=== PATIENT | female | born 1985 | race Caucasian/White ===

== ENCOUNTER 2018-05-17 08:48 | Outpatient (CLI) | payer BC ==
[~2018-05-17 08:48] MED LIST: FERRIC CARBOXYMALTOSE 750 MG in NORMAL SALINE 250 ML IV PRN; NORMAL SALINE 250 ML IV PRN
[2018-05-17 09:22] VITALS: BP 107/73
== END 2018-05-17 10:40 | disposition home or self-care (01) ==
LOC: II 08:48 → 5TH 09:21 → II 10:40
PROVIDERS: ATTEND Internal Medicine Hematology & Oncology
PROC: 3E043GC Introduction of Other Therapeutic Substance into Central Vein, Percutaneous Approach (ICD-10-PCS; principal; 2018-05-17)
DX: D50.9 Iron deficiency anemia, unspecified (principal); K90.9 Intestinal malabsorption, unspecified
CPT/HCPCS: 96367; J7050; J1439; 96365

== ENCOUNTER 2018-05-24 08:34 | Outpatient (CLI) | payer BC ==
[2018-05-24 08:54] VITALS: BP 119/71
== END 2018-05-24 09:45 | disposition home or self-care (01) ==
LOC: II 08:34 → 5TH 08:36 → II 09:45
PROVIDERS: ATTEND Internal Medicine Hematology & Oncology
PROC: 3E043GC Introduction of Other Therapeutic Substance into Central Vein, Percutaneous Approach (ICD-10-PCS; principal; 2018-05-24)
DX: D50.9 Iron deficiency anemia, unspecified (principal); K90.9 Intestinal malabsorption, unspecified
CPT/HCPCS: 96365; J7050; J1439

== ENCOUNTER 2018-07-24 12:24 | Outpatient (CLI) | payer BC ==
[2018-07-24 14:15] VITALS: BP 117/83
== END 2018-07-24 13:30 | disposition home or self-care (01) ==
LOC: II 12:24 → 5TH 12:28 → II 13:30
PROVIDERS: ATTEND Internal Medicine
PROC: 3E033GC Introduction of Other Therapeutic Substance into Peripheral Vein, Percutaneous Approach (ICD-10-PCS; principal; 2018-07-24)
DX: D50.9 Iron deficiency anemia, unspecified (principal); K90.9 Intestinal malabsorption, unspecified
CPT/HCPCS: 96367; J7050; J1439; 96365

== ENCOUNTER 2018-07-31 12:49 | Outpatient (CLI) | payer BC ==
[2018-07-31 14:57] VITALS: BP 157/85
== END 2018-07-31 15:09 | disposition home or self-care (01) ==
LOC: II 12:49 → 5TH 13:20 → II 15:09
PROVIDERS: ATTEND Internal Medicine
PROC: 3E033GC Introduction of Other Therapeutic Substance into Peripheral Vein, Percutaneous Approach (ICD-10-PCS; principal; 2018-07-31)
DX: D50.9 Iron deficiency anemia, unspecified (principal); K90.9 Intestinal malabsorption, unspecified
CPT/HCPCS: 96365; J7050; J1439

== ENCOUNTER 2018-08-04 07:37 | Emergency (ER) | payer BC ==
[2018-08-04 10:03] LABS: APPEARANCE,URINE CLEAR; BILIRUBIN,URINE NEGATIVE (NEGATIVE); COLOR,URINE STRAW; GLUCOSE, URINE NEGATIVE (NEGATIVE); KETONES,URINE NEGATIVE (NEGATIVE); LEUKOCYTE ESTERASE,URINE NEGATIVE (NEGATIVE); NITRITE,URINE NEGATIVE (NEGATIVE); PROTEIN,URINE NEGATIVE (NEGATIVE); URINE SPECIFIC GRAVITY 1.004; UROBILINOGEN,URINE NEGATIVE mg/dL (<2.0)
[2018-08-04 10:04] LABS: INTERNATIONAL RATION (INR) 0.85
[2018-08-04 10:08] LABS: ABSOLUTE BASOPHILS # (AUTO) 0.1 10^3/uL (0.0-0.2); ABSOLUTE EOSINOPHILS # (AUTO) 0.1 10^3/uL (0.0-0.6); ABSOLUTE LYMPHOCYTES (AUTO) 2.1 10^3/uL (0.5-4.7); ABSOLUTE MONOCYTES (AUTO) 0.6 10^3/uL (0.1-1.4); ABSOLUTE NEUT (AUTO) 4.6 10^3/uL (1.7-8.2); BASOPHILS % (AUTO) 0.7 % (0-2); EOSINOPHILS % (AUTO) 1.4 % (0-6); HEMATOCRIT 40.3 % (36.0-47.0); HEMOGLOBIN 13.4 g/dL (12.0-15.5); LYMPHOCYTES % (AUTO) 28.6 % (13-45); MEAN CORPUSCULAR HEMOGLOBIN 27.7 pg (27.0-33.4); MEAN CORPUSCULAR HGB CONC 33.3 g/dL (32.0-36.0); MEAN CORPUSCULAR VOLUME 83 fl (80-97); MONOCYTES % (AUTO) 7.5 % (3-13); PLATELET COUNT 327 10^3/uL (150-450); RED BLOOD COUNT 4.84 10^6/uL (3.72-5.28); SEGMENTED NEUTROPHILS % (AUTO) 61.8 % (42-78); TOTAL CELLS COUNTED % (AUTO) 100 %; WHITE BLOOD COUNT 7.5 10^3/uL (4.0-10.5)
[2018-08-04 10:21] LABS: ALANINE AMINOTRANSFERASE 22 U/L (9-52); ALBUMIN 3.6 g/dL (3.5-5.0); ALKALINE PHOSPHATASE 50 U/L (38-126); ANION GAP 5 (5-19); ASPARTATE AMINO TRANSFERASE 28 U/L (14-36); BILIRUBIN,DIRECT 0.2 mg/dL (0.0-0.4); BILIRUBIN,TOTAL 0.4 mg/dL (0.2-1.3); BLOOD UREA NITROGEN 10 mg/dL (7-20); CALCIUM 8.7 mg/dL (8.4-10.2); CARBON DIOXIDE 24 mmol/L (22-30); CHLORIDE 111 mmol/L (98-107); CREATINE KINASE 159 U/L (30-135); GLUCOSE 71 mg/dL (75-110); POTASSIUM 4.1 mmol/L (3.6-5.0); SODIUM 139.6 mmol/L (137-145); TOTAL PROTEIN 6.2 g/dL (6.3-8.2)
[2018-08-04 10:30] LABS: TOXIC GRANULATION 1+
[2018-08-04 10:31] LABS: ANISOCYTOSIS 3+; OVALOCYTES 1+; PLATELET COMMENT ADEQUATE; POIKILOCYTOSIS 1+; TARGET CELLS SLIGHT
[2018-08-04] MEDS ORDERED: FUROSEMIDE INJ/PF 20 MG/2 ML SDV IV ONE (10:43)
[2018-08-04 14:15] VITALS: BP 123/80
--- NOTE | 2018-08-04 20:47 | ER Document Report ---
Entered by MEGAN SHANKAR SCRIBE 08/04/18 0933 Acting as scribe for:CASA DANIELS MD ED Extremity Problem, Lower - General Chief Complaint: Leg Swelling Stated Complaint: LEG SWELLING Time Seen by Provider: 08/04/18 09:17 Primary Care Provider: CHARLEY MADRIGAL MD [Primary Care Provider] - Follow up as needed Mode of Arrival: Ambulatory Information source: Patient Notes: Patient is a 32 year old female with iron deficiency anemia presents to the emergency department complaining of bilateral lower extremity swelling onset 2 days ago. Patient states her legs are extremely swollen and painful and reports gaining 25 lbs in the last 2 weeks. She states she took Diurex yesterday in attempt to relieve the swelling but reports it did not work, further stating she only urinated a total of 2x yesterday. Patient states she is on control to lighten her periods which are normally extremely heavy. She states she stopped taking her control a few days ago. TRAVEL OUTSIDE OF THE [place] IN LAST 30 DAYS: No - Related Data Allergies/Adverse Reactions: No Known Allergies Allergy (Verified 08/04/18 07:39) Past Medical History - General Information source: Patient - Social History Smoking Status: Current Every Day Smoker Cigarette use (# per day): Yes - 1/2 PPD Frequency of alcohol use: Occasional Drug Abuse: None Family History: Reviewed & Not Pertinent Patient has suicidal ideation: No Patient has homicidal ideation: No - Past Medical History Cardiac Medical History: Reports: Hx Hypertension - HX OF, NOT CURRENTLY Past Surgical History: Reports: Hx Abdominal Surgery - gastric bypass, Hx Section - X3, Hx Oral Surgery - wisdome teeth, Other - Tubal clamps - Immunizations Hx Diphtheria, Pertussis, Tetanus Vaccination: Yes Review of Systems - Review of Systems Constitutional: No symptoms reported EENT: No symptoms reported Cardiovascular: No symptoms reported Respiratory: No symptoms reported Gastrointestinal: No symptoms reported Genitourinary: No symptoms reported Female Genitourinary: No symptoms reported Musculoskeletal: See HPI, Leg swelling Skin: No symptoms reported Hematologic/Lymphatic: No symptoms reported Neurological/Psychological: No symptoms reported -: Yes All other systems reviewed and negative Physical Exam - Vital signs Vitals: Temp Pulse Resp BP Pulse Ox 98.1 F 85 18 126/80 H 100 08/04/18 07:40 08/04/18 07:40 08/04/18 07:40 08/04/18 07:40 08/04/18 07:40 - Notes Notes: GENERAL: Alert, interacts well. No acute distress. HEAD: Normocephalic, atraumatic. EYES: Pupils equal, round, and reactive to light. Extraocular movements intact. ENT: Oral mucosa moist, tongue midline. NECK: Full range of motion. Supple. Trachea midline. LUNGS: Clear to auscultation bilaterally, no wheezes, rales, or rhonchi. No respiratory distress. HEART: Regular rate and rhythm. No murmurs, gallops, or rubs. ABDOMEN: Soft, non-tender. Non-distended. Bowel sounds present in all 4 quadrants. No guarding, rigidity, or rebound. EXTREMITIES: Moves all 4 extremities spontaneously. Gross pitting edema to the level of knees in the BLE. No cyanosis. NEUROLOGICAL: Alert and oriented x3. Normal speech. PSYCH: Normal affect, normal mood. SKIN: Warm, dry, normal turgor. No rashes or lesions noted. Course - Re-evaluation Re-evalutation: 08/04/18 13:59 The patient has diuresed a little over 2 L at this point. She reports the feet and ankles are still painful but a little bit better. There is still pitting edema, it feels a little softer. The calves are very soft and nontender. The most tender area is the left anterior tibialis muscle region. The left ankle remains a little more swollen than the right and a little more tender. - Vital Signs Vital signs: Temp Pulse Resp BP Pulse Ox 98.0 F 75 16 103/60 100 08/04/18 12:00 08/04/18 12:00 08/04/18 12:00 08/04/18 12:00 08/04/18 12:00 - Laboratory Result Diagrams: 08/04/18 09:40 08/04/18 09:40 Laboratory results interpreted by me: 08/04/18 08/04/18 08/04/18 09:40 09:40 09:40 RDW 25.0 H Chloride 111 H Glucose 71 L Magnesium 2.4 H Creatine Kinase 159 H Total Protein 6.2 L Urine Blood MODERATE H Discharge - Discharge Clinical Impression: Peripheral edema Condition: Stable Disposition: HOME, SELF-CARE Additional Instructions: Edema, Peripheral: You have swelling in your legs. This is called peripheral edema. It can be caused by "leaky capillaries," inflammation, disease of the leg veins, or excess salt and water in your body. Edema may be a sign of heart, kidney, or liver disease. A medical evaluation can determine if there is a serious underlying cause for your edema. Avoid prolonged standing. If you must sit for a long time, occasionally get up and walk around or elevate your legs. Support stockings can be helpful in limiting swelling. Often diuretic or water pills are used to remove excess salt and water from your body. Call the doctor or return if you develop increased swelling, pain, or redness, shortness of breath, chest pain, or any other significant change. Start the diuretic medication tomorrow. Elevate your feet as much as possible. Wear compression hose to help reduce and prevent swelling. Follow-up with your doctor in the next 1-2 days for recheck. RETURN TO THE EMERGENCY ROOM IF ANY NEW OR WORSENING SYMPTOMS. Prescriptions: Hydrochlorothiazide [Hydrodiuril 25 mg Tablet] 25 mg PO DAILY #10 Forms: Return to Work Referrals: CHARLEY MADRIGAL MD [Primary Care Provider] - 07/08/19 Scribe Attestation: 08/04/18 10:26 I personally performed the services described in the documentation, reviewed and edited the documentation which was dictated to the scribe in my presence, and it accurately records my words and actions. I personally performed the services described in the documentation, reviewed and edited the documentation which was dictated to the scribe in my presence, and it accurately records my words and actions.
== END 2018-08-04 14:32 | disposition home or self-care (01) ==
LOC: ER 07:37
DX: R60.0 Localized edema (principal); F17.210 Nicotine dependence, cigarettes, uncomplicated; I10 Essential (primary) hypertension; Z98.84 Bariatric surgery status
CPT/HCPCS: 99284; 96374; 36415; 82550; 83735; 85025; 85610; 80053; 81001; 85379; J1940

== ENCOUNTER 2019-02-02 09:35 | Emergency (ER) | payer BC ==
[2019-02-02 09:42] VITALS: BP 112/66
--- NOTE | 2019-02-02 10:25 | ER Document Report ---
HPI - HPI Patient complains to provider of: Skin rash Time Seen by Provider: 02/02/19 10:22 Onset/Duration: Worse Quality of pain: Burning Pain Level: 1 Context: Patient presents complaining of pruritic skin rash to the palmar surface of her hands for the past 4 months. Patient states that she has been applying topical steroid cream and the rash is almost completely resolved and then it started to worsen over the past week. Patient states that she wears latex gloves at work and frequently will pull the gloves off and noticed that her hands are weeping. Patient denies any fever. Patient states that she was prescribed another cream for her hands but her insurance would not cover it. Patient denies any fever. Associated Symptoms: Other - Skin rash. denies: Fever Exacerbated by: Movement Relieved by: Denies Similar symptoms previously: Yes Recently seen / treated by doctor: No - ROS ROS below otherwise negative: Yes Systems Reviewed and Negative: Yes All other systems reviewed and negative - CONSTITUTIONAL Constitutional: DENIES: Fever, Chills - REPRODUCTIVE Reproductive: DENIES: : - DERM Skin Problems: Rash Past Medical History - General Information source: Patient - Social History Smoking Status: Former Smoker Frequency of alcohol use: None Drug Abuse: None Occupation: [employer] Lives with: Spouse/Significant other Family History: Reviewed & Not Pertinent Patient has suicidal ideation: No Patient has homicidal ideation: No - Past Medical History Cardiac Medical History: Reports: Hx Hypertension - HX OF, NOT CURRENTLY Renal/ Medical History: Denies: Hx Peritoneal Dialysis Past Surgical History: Reports: Hx Abdominal Surgery - gastric bypass, Hx Section - X3, Hx Oral Surgery - wisdome teeth, Other - Tubal clamps. Denies: Hx Hysterectomy - Immunizations Hx Diphtheria, Pertussis, Tetanus Vaccination: Yes Vertical Provider Document - CONSTITUTIONAL Agree With Documented VS: Yes Exam Limitations: No Limitations General Appearance: WD/WN, No Apparent Distress - INFECTION CONTROL TRAVEL OUTSIDE OF THE [place] IN LAST 30 DAYS: No - HEENT HEENT: Atraumatic, Normocephalic - NECK Neck: Normal Inspection, Supple - RESPIRATORY Respiratory: No Respiratory Distress - CARDIOVASCULAR Pulses: Normal: Radial - MUSCULOSKELETAL/EXTREMETIES Musculoskeletal/Extremeties: MAEW, FROM - NEURO Level of Consciousness: Awake, Alert, Appropriate Motor/Sensory: No Motor Deficit - DERM Integumentary: Warm, Dry, Rash - Maculopapular rash to palmar surface of hands with areas of honey colored crusting Course - Re-evaluation Re-evalutation: 02/02/19 10:23 Patient with rash that looks consistent with reported history of dyshidrotic eczema. There is some concern about possible impetigo therefore antibiotic will be added at this time. Patient does have steroid cream is encouraged to follow- up with dermatology for further evaluation. Patient also advised to discontinue use of latex gloves at work switching instead to nitrile. - Vital Signs Vital signs: Temp Pulse Resp BP Pulse Ox 98.2 F 100 16 112/66 100 02/02/19 09:41 02/02/19 09:41 02/02/19 09:41 02/02/19 09:41 02/02/19 09:41 Discharge - Discharge Clinical Impression: Impetigo, Dyshidrotic eczema Condition: Stable Disposition: HOME, SELF-CARE Instructions: Cephalexin ([facility]), Impetigo ([facility]) Additional Instructions: Return immediately for any new or worsening symptoms Followup with your primary care provider, call tomorrow to make a followup appointment Continue to use the steroid cream as previously prescribed Follow-up with dermatology for further evaluation, call today for an appointment Prescriptions: Cephalexin Monohydrate [Keflex 500 mg Capsule] 500 mg PO Q6H 5 Days capsule Forms: Return to Work Referrals: CHARLEY MADRIGAL MD [Primary Care Provider] - Follow up as needed
== END 2019-02-02 10:22 | disposition home or self-care (01) ==
LOC: ER 09:35
DX: L01.00 Impetigo, unspecified (principal); L30.1 Dyshidrosis [pompholyx]; R21 Rash and other nonspecific skin eruption; I10 Essential (primary) hypertension
CPT/HCPCS: 99283

== ENCOUNTER 2019-03-13 11:36 | Emergency (ER) | payer BC ==
--- NOTE | 2019-03-13 12:04 | ER Document Report ---
ED Medical Screen (RME) - General Chief Complaint: Vag Bleeding, +preg <12wks Stated Complaint: CRAMPING, VAGINAL SPOTTING Time Seen by Provider: 03/13/19 12:00 Primary Care Provider: CHARLEY MADRIGAL MD [Primary Care Provider] - Follow up as needed Mode of Arrival: Ambulatory Information source: Patient Notes: 33-year-old female presents to ED for vaginal bleeding that started this morning. She states that she did have sexual intercourse last night she is 15 weeks 5 para 4 she states she is having mild cramping. Patient is alert oriented respirations regular nonlabored speaking in full sentences. I have greeted and performed a rapid initial assessment of this patient. A comprehensive ED assessment and evaluation of the patient, analysis of test results and completion of medical decision making process will be conducted by an additional ED providers. TRAVEL OUTSIDE OF THE [place] IN LAST 30 DAYS: No - Related Data Allergies/Adverse Reactions: latex Allergy (Verified 03/13/19 11:55) Past Medical History - Past Medical History Cardiac Medical History: Reports: Hx Hypertension - HX OF, NOT CURRENTLY Denies: Hx Coronary Artery Disease, Hx Heart Attack Pulmonary Medical History: Denies: Hx Asthma, Hx Bronchitis, Hx COPD, Hx Pneumonia Neurological Medical History: Denies: Hx Cerebrovascular Accident, Hx Seizures Renal/ Medical History: Denies: Hx Peritoneal Dialysis Musculoskeltal Medical History: Denies Hx Arthritis Past Surgical History: Reports: Hx Abdominal Surgery - gastric bypass, Hx Section - X3, Hx Oral Surgery - wisdome teeth, Other - Tubal clamps. Denies: Hx Hysterectomy - Immunizations Hx Diphtheria, Pertussis, Tetanus Vaccination: Yes Physical Exam - Vital signs Vitals: Temp Pulse Resp BP Pulse Ox 99 F 113 H 20 116/62 96 03/13/19 11:42 03/13/19 11:42 03/13/19 11:42 03/13/19 11:42 03/13/19 11:42 Course - Vital Signs Vital signs: Temp Pulse Resp BP Pulse Ox 99 F 113 H 20 116/62 96 03/13/19 11:42 03/13/19 11:42 03/13/19 11:42 03/13/19 11:42 03/13/19 11:42 Doctor's Discharge - Discharge Referrals: CHARLEY MADRIGAL MD [Primary Care Provider] - Follow up as needed
[2019-03-13 12:35] LABS: ABSOLUTE EOSINOPHILS # (AUTO) 0.1 10^3/uL (0.0-0.6); ABSOLUTE LYMPHOCYTES (AUTO) 1.5 10^3/uL (0.5-4.7); ABSOLUTE MONOCYTES (AUTO) 0.5 10^3/uL (0.1-1.4); ABSOLUTE NEUT (AUTO) 5.5 10^3/uL (1.7-8.2); BASOPHILS % (AUTO) 0.6 % (0-2); EOSINOPHILS % (AUTO) 1.2 % (0-6); LYMPHOCYTES % (AUTO) 19.8 % (13-45); MEAN CORPUSCULAR HEMOGLOBIN 30.7 pg (27.0-33.4); MEAN CORPUSCULAR VOLUME 90 fl (80-97); MONOCYTES % (AUTO) 6.9 % (3-13); PLATELET COUNT 256 10^3/uL (150-450); RED BLOOD COUNT 4.87 10^6/uL (3.72-5.28); RED CELL DISTRIBUTION WIDTH 13.7 % (11.5-14.0); SEGMENTED NEUTROPHILS % (AUTO) 71.5 % (42-78); TOTAL CELLS COUNTED % (AUTO) 100 %; WHITE BLOOD COUNT 7.7 10^3/uL (4.0-10.5)
[2019-03-13 12:36] LABS: APPEARANCE,URINE CLEAR; BILIRUBIN,URINE NEGATIVE (NEGATIVE); COLOR,URINE YELLOW; GLUCOSE, URINE NEGATIVE (NEGATIVE); KETONES,URINE NEGATIVE (NEGATIVE); PROTEIN,URINE NEGATIVE (NEGATIVE); URINE SPECIFIC GRAVITY 1.005; UROBILINOGEN,URINE NEGATIVE mg/dL (<2.0)
[2019-03-13 12:53] LABS: ALBUMIN 3.7 g/dL (3.5-5.0); ALKALINE PHOSPHATASE 48 U/L (38-126); ANION GAP 9 (5-19); ASPARTATE AMINO TRANSFERASE 23 U/L (14-36); BLOOD UREA NITROGEN 5 mg/dL (7-20); CALCIUM 8.9 mg/dL (8.4-10.2); CARBON DIOXIDE 23 mmol/L (22-30); CHLORIDE 105 mmol/L (98-107); GLUCOSE 84 mg/dL (75-110); POTASSIUM 4.2 mmol/L (3.6-5.0); TOTAL PROTEIN 6.3 g/dL (6.3-8.2)
--- NOTE | 2019-03-13 13:41 | RADIOLOGY REPORT (SQ) ---
EXAM DESCRIPTION: U/S OB 14+ TRNABD 1GES W/O DOP COMPLETED DATE/TIME: 03/13/2019 1:15 pm REASON FOR STUDY: Vaginal bleeding 15 weeks 5 para COMPARISON: None. TECHNIQUE: Static and Dynamic grayscale imaging performed of gravid uterus using transabdominal appr oach. Additional selected color Doppler and spectral images recorded. All stored on PACS. LIMITATIONS: None. FINDINGS: FETUSES SEEN:1 EGA: 13 weeks 5 days Calculated using BPD,FL,HC,AC documented on images. No discrepancy with clinica l dates. ЕКАТЕРИНА: 09/13/2019 No heart tones. Transverse presentation. Funneling of the cervix. 2.5 cm. IMPRESSION: demise. ESTIMATED GESTATIONAL AGE 13 weeks 5 days. Trimester of : Second trimester - 13 weeks 1 day to 27 weeks 6 days. TECHNICAL DOCUMENTATION: JOB ID: [id number] [employer]- All Rights Reserved Reading location - IP/workstation name: [email or web address]
--- NOTE | 2019-03-13 14:36 | ER Document Report ---
ED General - General Chief Complaint: Vag Bleeding, +preg <12wks Stated Complaint: CRAMPING, VAGINAL SPOTTING Time Seen by Provider: 03/13/19 12:00 Primary Care Provider: [facility] [Provider Group] - Follow up tomorrow (follow up today or tomorrow) CHARLEY MADRIGAL MD [Primary Care Provider] - Follow up as needed Mode of Arrival: Ambulatory Notes: 33-year-old female approximately 15 weeks . Last menstrual period was November 24. She is under the care [facility]. Presents emergency department with reports that she woke up this morning and had blood in her underwear. She also reports abdominal cramping. Denies trauma. Reports she thought she felt the baby move when it was at 13 weeks but has not really felt anything. She denies fever vomiting diarrhea. She denies trauma. She reports she took some Tylenol for the cramping and declines anything else. 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 TRAVEL OUTSIDE OF THE [place] IN LAST 30 DAYS: No - Related Data Allergies/Adverse Reactions: latex Allergy (Verified 03/13/19 11:55) Past Medical History - General Information source: Patient Last Menstrual Period: november 24 2018 - Social History Smoking Status: Never Smoker Chew tobacco use (# tins/day): No Frequency of alcohol use: None Drug Abuse: None Occupation: [employer] Lives with: Family Family History: Reviewed & Not Pertinent Patient has suicidal ideation: No Patient has homicidal ideation: No - Past Medical History Cardiac Medical History: Reports: Hx Hypertension - HX OF, NOT CURRENTLY Denies: Hx Coronary Artery Disease, Hx Heart Attack Pulmonary Medical History: Denies: Hx Asthma, Hx Bronchitis, Hx COPD, Hx Pneumonia Neurological Medical History: Denies: Hx Cerebrovascular Accident, Hx Seizures Renal/ Medical History: Denies: Hx Peritoneal Dialysis Musculoskeletal Medical History: Denies Hx Arthritis Past Surgical History: Reports: Hx Abdominal Surgery - gastric bypass, Hx Section - X3, Hx Oral Surgery - wisdome teeth, Other - Tubal clamps. Denies: Hx Hysterectomy - Immunizations Hx Diphtheria, Pertussis, Tetanus Vaccination: Yes Review of Systems - Review of Systems Notes: Review HPI for review of systems., All other systems negative Physical Exam - Vital signs Vitals: Temp Pulse Resp BP Pulse Ox 99 F 113 H 20 116/62 96 03/13/19 11:42 03/13/19 11:42 03/13/19 11:42 03/13/19 11:42 03/13/19 11:42 - Notes Notes: PHYSICAL EXAMINATION: GENERAL: Well-appearing anxious HEAD: Atraumatic, normocephalic. EYES: Pupils equal round extraocular movements intact, sclera anicteric, conjunctiva are normal. ENT: nares patent, Moist mucous membranes. NECK: Normal range of motion, supple without lymphadenopathy LUNGS: CTAB and equal. No wheezes rales or rhonchi. HEART: Regular rate and rhythm without murmurs ABDOMEN: Soft, no tenderness. No guarding, no rebound denies pain on palpation EXTREMITIES: Normal range of motion NEUROLOGICAL: Cranial nerves grossly intact. Normal sensory/motor exams. PSYCH: Normal mood, normal affect. SKIN: Warm, Dry, normal turgor, Course - Re-evaluation Re-evalutation: 03/13/19 14:46 33-year-old female G5, P4 presents approximately 15 weeks with complaints of noticing blood in her underwear. She also complains of abdominal cramps. Labs are unremarkable. Ultrasound shows demise. I contacted Dr. Ignacio SCREW MACHINE SET UP OPERATOR [employer] and he reports patient can follow-up in the office today or tomorrow. I discussed this with patient, She was provided with emotional support. She verbalized understanding to all instructions. 03/13/19 12:20 03/13/19 12:20 MCV 90 fl (80-97) 03/13/19 12:20 MCH 30.7 pg (27.0-33.4) 03/13/19 12:20 MCHC 34.0 g/dL (32.0-36.0) 03/13/19 12:20 RDW 13.7 % (11.5-14.0) 03/13/19 12:20 Seg Neutrophils % 71.5 % (42-78) 03/13/19 12:20 Chloride 105 mmol/L (98-107) 03/13/19 12:20 Carbon Dioxide 23 mmol/L (22-30) 03/13/19 12:20 Anion Gap 9 (5-19) 03/13/19 12:20 Est GFR ( Amer) > 60 (>60) 03/13/19 12:20 Glucose 84 mg/dL (75-110) 03/13/19 12:20 Calcium 8.9 mg/dL (8.4-10.2) 03/13/19 12:20 Total Bilirubin 1.0 mg/dL (0.2-1.3) 03/13/19 12:20 AST 23 U/L (14-36) 03/13/19 12:20 Alkaline Phosphatase 48 U/L (38-126) 03/13/19 12:20 Total Protein 6.3 g/dL (6.3-8.2) 03/13/19 12:20 Albumin 3.7 g/dL (3.5-5.0) 03/13/19 12:20 Urine Color YELLOW 03/13/19 12:20 Urine Appearance CLEAR 03/13/19 12:20 Urine pH 7.0 (5.0-9.0) 03/13/19 12:20 Ur Specific [place] 1.005 03/13/19 12:20 Urine Protein NEGATIVE mg/dL (NEGATIVE) 03/13/19 12:20 Urine Glucose (UA) NEGATIVE mg/dL (NEGATIVE) 03/13/19 12:20 Urine Ketones NEGATIVE mg/dL (NEGATIVE) 03/13/19 12:20 Urine Blood SMALL (NEGATIVE) H 03/13/19 12:20 Urine RBC (Auto) 1 /HPF 03/13/19 12:20 Obstetrics Ultrasound 03/13/19 12:04 IMPRESSION: demise. ESTIMATED GESTATIONAL AGE 13 weeks 5 days. Trimester of : Second trimester - 13 weeks 1 day to 27 weeks 6 days. 03/13/19 19:32 - Vital Signs Vital signs: Temp Pulse Resp BP Pulse Ox 97.8 F 87 21 H 111/73 95 03/13/19 14:47 03/13/19 14:47 03/13/19 14:47 03/13/19 14:47 03/13/19 14:47 - Laboratory Result Diagrams: 03/13/19 12:20 03/13/19 12:20 Laboratory results interpreted by me: 03/13/19 03/13/19 12:20 12:20 Sodium 136.8 L BUN 5 L Creatinine 0.47 L Urine Blood SMALL H - Diagnostic Test Radiology reviewed: Reports reviewed - Consults dr ignacio Time consulted: 14:30 Reason for consultation: 03/13/19 14:44 demise Consulted provider: follow-up in office Discharge - Discharge Clinical Impression: demise Condition: Stable Disposition: HOME, SELF-CARE Additional Instructions: *You have been evaluated for abdominal cramps, vaginal bleeding, demise *Take tylenol as indicated for cramps *Follow up with the [facility] today or tomorrow morning. *Return to ED for worsening condition, changes, needs, concerns Forms: Return to Work Referrals: CHARLEY MADRIGAL MD [Primary Care Provider] - Follow up as needed [facility] [Provider Group] - Follow up tomorrow (follow up today or tomorrow)
[2019-03-13 14:47] VITALS: BP 111/73
== END 2019-03-13 14:57 | disposition home or self-care (01) ==
LOC: ER 11:36
DX: O03.9 Complete or unspecified spontaneous abortion without complication (principal); Z98.84 Bariatric surgery status; Z91.040 Latex allergy status
CPT/HCPCS: 36415; 76805; 80053; 81001; 85025; 99284

== ENCOUNTER 2019-03-14 09:25 | Observation (INO) | payer BC ==
[2019-03-14] MEDS ORDERED: ACETAMINOPHEN 325 MG TABLET PO PRN (09:48)
[2019-03-14] MEDS ORDERED: ONDANSETRON HCL INJ/PF 4 MG/2 ML SDV IV PRN (09:48)
[2019-03-14] MEDS ORDERED: PROMETHAZINE HCL INJ 25 MG/1 ML VIAL IV PRN (09:49)
[2019-03-14] MEDS: IBUPROFEN 800 MG TABLET PO SCH ×2 (10:39→18:57)
[2019-03-14] MEDS: MISOPROSTOL 0.2 MG TABLET PV SCH ×4 (10:55→19:02)
[2019-03-14] MEDS: RINGERS SOLUTION,LACTATED 1,000 ML IV PRN ×2 (11:13→19:56)
[2019-03-14 11:47] LABS: HEMATOCRIT 42.4 % (36.0-47.0); HEMOGLOBIN 14.5 g/dL (12.0-15.5); MEAN CORPUSCULAR HEMOGLOBIN 30.6 pg (27.0-33.4); MEAN CORPUSCULAR HGB CONC 34.3 g/dL (32.0-36.0); MEAN CORPUSCULAR VOLUME 89 fl (80-97); PLATELET COUNT 246 10^3/uL (150-450); RED BLOOD COUNT 4.75 10^6/uL (3.72-5.28); RED CELL DISTRIBUTION WIDTH 13.4 % (11.5-14.0); WHITE BLOOD COUNT 8.7 10^3/uL (4.0-10.5)
[2019-03-14 12:05] LABS: URINE AMPHETAMINES SCREEN NEGATIVE; URINE BARBITURATES SCREEN NEGATIVE; URINE BENZODIAZEPINES SCREEN NEGATIVE; URINE COCAINE SCREEN NEGATIVE; URINE MARIJUANA (THC) SCREEN NEGATIVE; URINE METHADONE SCREEN NEGATIVE; URINE PHENCYCLIDINE SCREEN NEGATIVE
[2019-03-14] MEDS: MORPHINE SULFATE 10 MG/ML INJ IV PRN ×2 (13:34→15:10)
--- NOTE | 2019-03-14 17:37 | PDOC PROGRESS REPORT ---
Subjective Progress Note for:: 03/14/19 Subjective:: Called out with increased pain/bleeding Upon my arrival the demise was being delivered by Azeb Cazares CNM. Demised infant was noted that appeared to be approx 10-11 wks Some blood clots noted but no placenta. The umbilical cord tore during delivery. Fundal massage was done as vaginal bleeding continued. A speculum was then placed and the cervical os was noted to be 1 cm dilated with placental tissue noted just inside os. A ring forcep was used to attempt g rasping tissue in os but only small amount of membranes removed. Bleeding was heavy but with bimanual massage the bleeding stopped. VSS with b/p 107/85 and normal pulse. Discussed with patient and her that we can give additional cytotec in 1 hr. If brisk bleeding resumes or placenta will not pass, she will require a dilation and currettage in the OR. She understands and agrees. Risk and benefits reviewed. She would like chromosomes done from baby. Reason For Visit: DEMISE Physical Exam - Physical Exam Vital Signs: Temp Pulse Resp BP Pulse Ox 99.8 F 85 18 107/63 99 03/14/19 16:45 03/14/19 16:45 03/14/19 16:45 03/14/19 16:45 03/14/19 16:45 Result Laboratory Results: 03/14/19 10:40 03/14/19 03/14/19 10:40 10:40 WBC 8.7 RBC 4.75 Hgb 14.5 Hct 42.4 MCV 89 MCH 30.6 MCHC 34.3 RDW 13.4 Plt Count 246 Blood Type B POSITIVE Antibody Screen NEGATIVE Assessment & Plan - Time Time Spent with patient: 25-34 minutes
[2019-03-14] MEDS ORDERED: MISOPROSTOL 0.2 MG TABLET ONE ×2 (18:17→22:20)
[2019-03-14] MEDS ORDERED: MISOPROSTOL 0.2 MG TABLET PV ONE ×2 (19:00→19:30)
[2019-03-14 22:13] LABS: ABSOLUTE EOSINOPHILS # (AUTO) 0.1 10^3/uL (0.0-0.6); ABSOLUTE MONOCYTES (AUTO) 0.6 10^3/uL (0.1-1.4); ABSOLUTE NEUT (AUTO) 8.4 10^3/uL (1.7-8.2); BASOPHILS % (AUTO) 0.4 % (0-2); EOSINOPHILS % (AUTO) 0.5 % (0-6); HEMATOCRIT 37.2 % (36.0-47.0); HEMOGLOBIN 12.7 g/dL (12.0-15.5); LYMPHOCYTES % (AUTO) 17.7 % (13-45); MEAN CORPUSCULAR HEMOGLOBIN 30.4 pg (27.0-33.4); MEAN CORPUSCULAR HGB CONC 34.2 g/dL (32.0-36.0); MEAN CORPUSCULAR VOLUME 89 fl (80-97); MONOCYTES % (AUTO) 5.7 % (3-13); PLATELET COUNT 236 10^3/uL (150-450); RED BLOOD COUNT 4.19 10^6/uL (3.72-5.28); RED CELL DISTRIBUTION WIDTH 13.5 % (11.5-14.0); SEGMENTED NEUTROPHILS % (AUTO) 75.7 % (42-78); TOTAL CELLS COUNTED % (AUTO) 100 %; WHITE BLOOD COUNT 11.1 10^3/uL (4.0-10.5)
[2019-03-14] MEDS ORDERED: MISOPROSTOL 0.2 MG TABLET PO ONE (22:45)
[2019-03-14] MEDS: DEXTROSE 5%-NORMAL SALINE 1,000 ML IV PRN (23:08)
[2019-03-15] MEDS: MISOPROSTOL 0.2 MG TABLET PO SCH ×2 (02:57→08:43)
[2019-03-15 06:13] LABS: ABSOLUTE BASOPHILS # (AUTO) 0.1 10^3/uL (0.0-0.2); ABSOLUTE EOSINOPHILS # (AUTO) 0.1 10^3/uL (0.0-0.6); ABSOLUTE MONOCYTES (AUTO) 0.6 10^3/uL (0.1-1.4); ABSOLUTE NEUT (AUTO) 5.7 10^3/uL (1.7-8.2); BASOPHILS % (AUTO) 0.7 % (0-2); EOSINOPHILS % (AUTO) 1.5 % (0-6); HEMATOCRIT 37.4 % (36.0-47.0); HEMOGLOBIN 12.8 g/dL (12.0-15.5); LYMPHOCYTES % (AUTO) 23.8 % (13-45); MEAN CORPUSCULAR HEMOGLOBIN 30.6 pg (27.0-33.4); MEAN CORPUSCULAR HGB CONC 34.2 g/dL (32.0-36.0); MEAN CORPUSCULAR VOLUME 90 fl (80-97); MONOCYTES % (AUTO) 6.9 % (3-13); PLATELET COUNT 213 10^3/uL (150-450); RED BLOOD COUNT 4.18 10^6/uL (3.72-5.28); RED CELL DISTRIBUTION WIDTH 13.7 % (11.5-14.0); SEGMENTED NEUTROPHILS % (AUTO) 67.1 % (42-78); TOTAL CELLS COUNTED % (AUTO) 100 %; WHITE BLOOD COUNT 8.4 10^3/uL (4.0-10.5)
[2019-03-15] MEDS: DEXTROSE 5%-NORMAL SALINE 1,000 ML IV PRN ×2 (07:08→14:03)
[2019-03-15] MEDS: IBUPROFEN 800 MG TABLET PO SCH (08:42)
[2019-03-15] MEDS: MISOPROSTOL 0.2 MG TABLET PV SCH (08:43)
--- NOTE | 2019-03-15 09:48 | PDOC PROGRESS REPORT ---
Subjective Progress Note for:: 03/15/19 Reason For Visit: DEMISE, has had some intermittent bleeding, no passage of placenta as yet. sono shows significant amount of materila still in uterus. Physical Exam - Physical Exam Vital Signs: Temp Pulse Resp BP Pulse Ox 97.9 F 85 18 109/54 L 95 03/15/19 07:33 03/15/19 07:33 03/15/19 07:33 03/15/19 07:33 03/15/19 07:33 Intake & Output 03/14/19 03/15/19 03/16/19 06:59 06:59 06:59 Intake Total 2000 240 Output Total 1200 500 Balance 800 -260 Weight 87.3 kg General appearance: PRESENT: no acute distress, cooperative Head exam: PRESENT: atraumatic - Gynecological Exam Vagina: other - Small amount of dark blood in vaginal vault. Small amount of tissue in cervical os that is 1 cm dilated. Ring forcep used to pull tissue from os. Obtained some tissue. Some membranes. Not a large amount. NO active bleeding Result Laboratory Results: 03/15/19 05:59 03/14/19 03/14/19 03/14/19 10:40 10:40 21:50 WBC 8.7 11.1 H RBC 4.75 4.19 Hgb 14.5 12.7 Hct 42.4 37.2 MCV 89 89 MCH 30.6 30.4 MCHC 34.3 34.2 RDW 13.4 13.5 Plt Count 246 236 Seg Neutrophils % 75.7 Blood Type B POSITIVE Antibody Screen NEGATIVE 03/15/19 05:59 WBC 8.4 RBC 4.18 Hgb 12.8 Hct 37.4 MCV 90 MCH 30.6 MCHC 34.2 RDW 13.7 Plt Count 213 Seg Neutrophils % 67.1 Blood Type Antibody Screen Assessment & Plan - Diagnosis (1) Retained products of conception after delivery without hemorrhage Is this a current diagnosis for this admission?: Yes (2) demise Is this a current diagnosis for this admission?: Yes - Time Time Spent with patient: Less than 15 minutes - Inpatient Certification Based on my medical assessment, after consideration of the patient's comorbidities, presenting symptoms, or acuity I expect that the services needed warrant INPATIENT care.: Yes I certify that my determination is in accordance with my understanding of Medicare's requirements for reasonable and necessary INPATIENT services [42 CFR 412.3e].: Yes Medical Necessity: Need for Surgery - Plan Summary Plan Summary: if patient stable and tolerates procedure well, will procee with discharge at that time.
--- NOTE | 2019-03-15 09:55 | RADIOLOGY REPORT (SQ) ---
EXAM DESCRIPTION: U/S NON OB PEL W/DOPPLER COMPLETED DATE/TIME: 03/15/2019 8:41 am REASON FOR STUDY: possible retained placenta COMPARISON: None. TECHNIQUE: Dynamic and static grayscale images acquired of the pelvis via transabdominal approach an d recorded on PACS. Additional selected color Doppler and spectral images recorded. LIMITATIONS: None. FINDINGS: UTERUS: Contour normal. . ENDOMETRIAL STRIPE: Thickened and heterogeneous. 2.8 cm. No vascularity. CERVIX: 3.5 cm. RIGHT OVARY AND DOPPLER: Normal size. No worrisome masses. Normal arterial vascular flow without evid ence for torsion. LEFT OVARY AND DOPPLER: Normal size. No worrisome masses. Normal arterial vascular flow without evide nce for torsion. FREE FLUID: None noted. OTHER: No other significant finding. MEASUREMENTS: UTERUS: 12.8 cm. ENDOMETRIAL STRIPE: 2.8 cm. RIGHT OVARY: 3.1 cm LEFT OVARY: 3.8 cm IMPRESSION: Thickened heterogeneous endometrium consistent with retained products of conception. No vascularity. TECHNICAL DOCUMENTATION: JOB ID: [id number]- All Rights Reserved Rev-09/21 Reading location - IP/workstation name: [email or web address]
[2019-03-15] MEDS ORDERED: PROPOFOL INJ 200 MG/20 ML VIAL IV ONE (10:52)
[2019-03-15] MEDS ORDERED: ONDANSETRON HCL INJ/PF 4 MG/2 ML SDV ONE (10:52)
[2019-03-15] MEDS ORDERED: MIDAZOLAM 2 MG/2 ML INJ ONE (10:52)
[2019-03-15] MEDS ORDERED: FENTANYL CITRATE INJ/PF 100 MCG/2 ML AMPUL ONE (10:52)
[2019-03-15] MEDS ORDERED: KETAMINE HCL INJ 500 MG/10 ML VIAL ONE (10:54)
[2019-03-15] MEDS ORDERED: MISOPROSTOL 0.2 MG TABLET ONE (11:50)
[2019-03-15] MEDS ORDERED: PROMETHAZINE HCL INJ 25 MG/1 ML VIAL IV PRN (12:10)
[2019-03-15] MEDS ORDERED: OXYCODONE-ACETAMINOPHEN 5-325 MG TABLET PO PRN ×2 (12:10)
--- NOTE | 2019-03-15 12:10 | Operative Report ---
Operative Report DATE OF SURGERY: 03/15/19 PREOPERATIVE DIAGNOSIS: Retained products of conception POSTOPERATIVE DIAGNOSIS: Same OPERATION: suction dilation and currettage SURGEON: DEEP CASEY ANESTHESIA: LMAC TISSUE REMOVED OR ALTERED: Products of conception COMPLICATIONS: None ESTIMATED BLOOD LOSS: 300 cc INTRAOPERATIVE FINDINGS: Moderate amount of placental and decidual tissue removed with primarily suction curettage PROCEDURE: Patient was taken to the operating room prepared and draped in a normal sterile fashion in a dorsal lithotomy position. An in and out cath was performed of approximately 100 cc of clear urine. Sterile speculum was placed into the vagina and the cervix was prepped with Betadine and grasped on the anterior lip with a single-tooth tenaculum. The uterus was sounded to the above findings. The cervix was dilated to accommodate an 8 mm curved curette. The curved curette was passed x3 under suction and a small amount of decidual type tissue was removed. Curettage was performed using Kevorkian curette. Good great was noted 360 degrees around. More pass with the suction curette no further tissue. Moderate bleeding was noted from the cervix therefore 800 mcg of Cytotec were placed per rectum. The speculum was replaced pressure was held at the cervix and on the uterine fundus. And the bleeding slowed down significantly and the cervical office was shown to be closing. the procedure was then concluded. Instruments were removed. sponge lap and needle counts were correct x2. She was taken to recovery in stable condition
[2019-03-15] MEDS ORDERED: METHYLERGONOVINE MALEATE INJ/PF 0.2 MG/1 ML AMPULE ONE (12:46)
[2019-03-15] MEDS ORDERED: METHYLERGONOVINE MALEATE INJ/PF 0.2 MG/1 ML AMPULE IM ONE ×2 (14:00→15:15)
--- NOTE | 2019-03-15 17:58 | PDOC DISCHARGE SUMMARY ---
Impression - Admit/DC Date/PCP Admission Date/Primary Care Provider: 03/14/19 09:25 CHARLEY MADRIGAL MD Discharge Date: 03/15/19 - Discharge Diagnosis (1) Retained products of conception after delivery without hemorrhage Is this a current diagnosis for this admission?: Yes (2) demise Is this a current diagnosis for this admission?: Yes - Additional Information Resuscitation Status: Full Code Discharge Diet: As Tolerated Discharge Activity: Balance Activity w/Rest, Pelvic Rest, No tub bath Referrals: [facility] [Provider Group] CHARLEY MADRIGAL MD [Primary Care Provider] - Prescriptions: Oxycodone HCl/Acetaminophen [Percocet 5-325 mg Tablet] 1 tab PO Q4HP PRN #20 tablet PRN Reason: Doxycycline Hyclate 100 mg PO BID #14 capsule Ibuprofen [Ibu] 800 mg PO Q8 #60 tablet Methylergonovine Maleate [Methergine 0.2 Mg Tablet] 0.2 mg PO Q6 #7 tablet Home Medications: Cyanocobalamin (Vitamin B-12) [B-12] 1 tab PO DAILY 08/04/18 Hydrochlorothiazide [Hydrodiuril 25 mg Tablet] 25 mg PO DAILY #10 08/04/18 Multivitamin with Iron [Multivitamins with Iron] 1 tab PO DAILY 08/04/18 Cephalexin Monohydrate [Keflex 500 mg Capsule] 500 mg PO Q6H 5 Days capsule 02/02/19 Doxycycline Hyclate 100 mg PO BID #14 capsule 03/15/19 Ibuprofen [Ibu] 800 mg PO Q8 #60 tablet 03/15/19 Methylergonovine Maleate [Methergine 0.2 Mg Tablet] 0.2 mg PO Q6 #7 tablet 03/15/19 Oxycodone HCl/Acetaminophen [Percocet 5-325 mg Tablet] 1 tab PO Q4HP PRN #20 tablet 03/15/19 History of Present Illiness History of Present Illness: CARLA INFANTE is a 33 year old female Physical Exam - Physical Exam Vital Signs: Temp Pulse Resp BP Pulse Ox 97.9 F 86 17 112/68 99 03/15/19 17:12 03/15/19 17:12 03/15/19 17:12 03/15/19 17:12 03/15/19 17:12 Intake & Output 03/14/19 03/15/19 03/16/19 06:59 06:59 06:59 Intake Total 1999 1989 Output Total 1200 530 Balance 800 1460 Weight 87.3 kg - Gynecological Exam Vagina: other - Small amount of dark blood in vaginal vault. Small amount of tissue in cervical os that is 1 cm dilated. Ring forcep used to pull tissue from os. Obtained some tissue. Some membranes. Not a large amount. NO active bleeding Results Laboratory Results: WBC 8.4 10^3/uL (4.0-10.5) 03/15/19 05:59 RBC 4.18 10^6/uL (3.72-5.28) 03/15/19 05:59 Hgb 12.8 g/dL (12.0-15.5) 03/15/19 05:59 Hct 37.4 % (36.0-47.0) 03/15/19 05:59 MCV 90 fl (80-97) 03/15/19 05:59 MCH 30.6 pg (27.0-33.4) 03/15/19 05:59 MCHC 34.2 g/dL (32.0-36.0) 03/15/19 05:59 RDW 13.7 % (11.5-14.0) 03/15/19 05:59 Plt Count 213 10^3/uL (150-450) 03/15/19 05:59 Lymph % (Auto) 23.8 % (13-45) 03/15/19 05:59 [place] % (Auto) 6.9 % (3-13) 03/15/19 05:59 Eos % (Auto) 1.5 % (0-6) 03/15/19 05:59 Baso % (Auto) 0.7 % (0-2) 03/15/19 05:59 Absolute Neuts (auto) 5.7 10^3/uL (1.7-8.2) 03/15/19 05:59 Absolute Lymphs (auto) 2.0 10^3/uL (0.5-4.7) 03/15/19 05:59 Absolute Monos (auto) 0.6 10^3/uL (0.1-1.4) 03/15/19 05:59 Absolute Eos (auto) 0.1 10^3/uL (0.0-0.6) 03/15/19 05:59 Absolute Basos (auto) 0.1 10^3/uL (0.0-0.2) 03/15/19 05:59 Seg Neutrophils % 67.1 % (42-78) 03/15/19 05:59 Urine Opiates Screen NEGATIVE 03/14/19 09:55 Urine Methadone Screen NEGATIVE 03/14/19 09:55 Ur Barbiturates Screen NEGATIVE 03/14/19 09:55 Ur Phencyclidine Scrn NEGATIVE 03/14/19 09:55 Ur Amphetamines Screen NEGATIVE 03/14/19 09:55 U Benzodiazepines Scrn NEGATIVE 03/14/19 09:55 Urine Cocaine Screen NEGATIVE 03/14/19 09:55 U Marijuana (THC) Screen NEGATIVE 03/14/19 09:55 Blood Type B POSITIVE 03/14/19 10:40 Antibody Screen NEGATIVE 03/14/19 10:40 Impressions: Pelvis Ultrasound 03/15/19 00:00 IMPRESSION: Thickened heterogeneous endometrium consistent with retained products of conception. No vascularity. Stroke Is this a Stroke Patient?: No Acute Heart Failure - Is this a Heart Failure Patient?: No
[2019-03-15] MEDS ORDERED: IBUPROFEN 800 MG TABLET PO SCH (18:00)
[2019-03-15] MEDS ORDERED: DOCUSATE SODIUM 100 MG CAPSULE PO SCH (18:00)
[2019-03-15 18:17] VITALS: BP 104/54
[2019-03-16] MEDS ORDERED: PRENATAL VITAMIN W DHA CAPSULE PO SCH (10:00)
== END 2019-03-15 20:40 | disposition home or self-care (01) ==
LOC: 2N 09:25 → INTOOBSV 09:25
PROVIDERS: ADMIT Obstetrics & Gynecology; ATTEND Obstetrics & Gynecology
DX: O02.89 Other abnormal products of conception (principal); Z98.84 Bariatric surgery status; Z67.20 Type B blood, Rh positive
CPT/HCPCS: 86900; 86901; 36415 ×2; 86850; 85025; 85027; 80307; 88233; 88262; 88305 ×4; 76856; 93976; 00940; 59200; 59812; G0378 ×2; G0379; J2250; J3010; J3490; J2210; J2270; J2405; J7042 ×2; J7120; J2704; 940

== ENCOUNTER 2020-01-08 07:13 | Outpatient (CLI) | payer BC, OTHER ==
[~2020-01-08 07:13] MED LIST changes: -FERRIC CARBOXYMALTOSE 750 MG in NORMAL SALINE 250 ML IV PRN; +IRON DEXTRAN COMPLEX 25 MG in SYRINGE, DISPOSABLE, 1 EACH IV PRN; +IRON DEXTRAN COMPLEX 775 MG in NORMAL SALINE 500 ML IV PRN
[2020-01-08 08:45] VITALS: BP 105/59
== END 2020-01-08 14:00 | disposition home or self-care (01) ==
LOC: II 07:13 → 5TH 07:16 → II 14:00
PROVIDERS: ATTEND Internal Medicine Hematology & Oncology
DX: D50.9 Iron deficiency anemia, unspecified (principal); K90.9 Intestinal malabsorption, unspecified
CPT/HCPCS: 96365; 96366; 96375; J1750; J7040; J3490

== ENCOUNTER 2020-01-15 07:46 | Outpatient (CLI) | payer BC ==
[~2020-01-15 07:46] MED LIST changes: -IRON DEXTRAN COMPLEX 25 MG in SYRINGE, DISPOSABLE, 1 EACH IV PRN; -IRON DEXTRAN COMPLEX 775 MG in NORMAL SALINE 500 ML IV PRN; +IRON DEXTRAN COMPLEX 800 MG in NORMAL SALINE 500 ML IV PRN
[2020-01-15 07:57] VITALS: BP 114/63
== END 2020-01-15 12:21 | disposition home or self-care (01) ==
LOC: II 07:46 → 5TH 07:48 → II 12:21
PROVIDERS: ATTEND Internal Medicine Hematology & Oncology
DX: D50.9 Iron deficiency anemia, unspecified (principal); K90.9 Intestinal malabsorption, unspecified
CPT/HCPCS: 96365; 96366; J1750; J7040

== ENCOUNTER → 2020-03-10 | Outpatient (CLI) | payer OTHER ==
--- NOTE | 2020-03-10 19:29 | XCELERA REPORT ---
[address] [address] Transthoracic Echocardiogram Report Name: CARLA INFANTE Age: 34 yrs Gender: Female : 1985 Patient Status: Outpatient Patient Location: RAD Study Date: 03/10/2020 02:11 PM History: Edema Height: 64 in Weight: 221 lb BSA: 2.0 m2 Procedure: A complete two-dimensional transthoracic echocardiogram was performed (2D, M-mode, spectral and color flow Doppler). The study was technically difficult with many images being suboptimal in quality. Reason For Study: EDEMA Previous Evaluation: No previous studies were available. History: Edema. Ordering Physician: MIN GONZALEZ Performed By: Chelo Corado Interpretation Summary Left ventricular systolic function is normal. The Ejection Fraction estimate is 60-65% There is a trace amount of mitral regurgitation There is no aortic valve stenosis There is a trace amount of tricuspid regurgitation There is mild pulmonary hypertension by echo There is no pericardial effusion. MMode/2D Measurements & Calculations RVDd: 2.2 cm LVIDd: 4.7 cm FS: 38.4 % Ao root diam: 2.5 cm IVSd: 0.71 cm LVIDs: 2.9 cm EDV(Teich): 103.9 ml Ao root area: 4.7 cm2 LVPWd: 0.89 cm ESV(Teich): 32.6 ml EF(Teich): 68.6 % Doppler Measurements & Calculations MV E max humberto: MV dec slope: Ao V2 max: LV V1 max P.5 cm/sec 593.7 cm/sec2 175.5 cm/sec 12.1 mmHg MV A max humberto: MV dec time: 0.18 secAo max PG: LV V1 max: 76.5 cm/sec 12.3 mmHg 173.8 cm/sec MV E/A: 1.4 PA V2 max: TR max humberto: 119.8 cm/sec 284.2 cm/sec PA max P.7 mmHg TR max P.3 mmHg Left Ventricle The left ventricle is normal in size. There is normal left ventricular wall thickness. Left ventricular systolic function is normal. The Ejection Fraction estimate is 60-65%. Doppler measurements suggest normal left ventricular diastolic function. No regional wall motion abnormalities noted. Right Ventricle The right ventricle is normal in size and function. Atria The right atrium is normal. The left atrium is borderline dilated. The interatrial septum is intact with no evidence for an atrial septal defect. There is no Doppler evidence for an interatrial shunt. Mitral Valve The mitral valve is grossly normal. There is no mitral valve stenosis. There is a trace amount of mitral regurgitation. Aortic Valve The aortic valve is trileaflet. The aortic valve opens well. There is no aortic valve stenosis. No aortic regurgitation is present. Tricuspid Valve The tricuspid valve is normal in structure and function. There is no tricuspid stenosis. There is a trace amount of tricuspid regurgitation. Right ventricular systolic pressure is estimated to be elevated at 30-40mmHg. There is mild pulmonary hypertension by echo. Pulmonic Valve The pulmonic valve is normal in structure and function. There is no pulmonic valvular stenosis. There is a trace amount of pulmonic regurgitation. Great Vessels The aortic root is normal size. The inferior vena cava appeared normal and decreased > 50% with respiration (RAP 5-10 mmHg). Effusions There is no pericardial effusion. : MIN GONZALEZ Anil
== END ==
LOC: RAD 13:52
PROVIDERS: ATTEND Internal Medicine
DX: R60.0 Localized edema (principal)
CPT/HCPCS: 93306

== ENCOUNTER 2020-03-30 07:45 | Inpatient (IN) | payer BC, OTHER ==
[2020-03-26 09:35] LABS: APPEARANCE,URINE CLEAR; BILIRUBIN,URINE NEGATIVE (NEGATIVE); COLOR,URINE YELLOW; GLUCOSE, URINE NEGATIVE (NEGATIVE); KETONES,URINE NEGATIVE (NEGATIVE); LEUKOCYTE ESTERASE,URINE NEGATIVE (NEGATIVE); NITRITE,URINE NEGATIVE (NEGATIVE); PROTEIN,URINE NEGATIVE (NEGATIVE); URINE SPECIFIC GRAVITY 1.006; UROBILINOGEN,URINE NEGATIVE mg/dL (<2.0)
[2020-03-26 09:38] LABS: ABSOLUTE EOSINOPHILS # (AUTO) 0.1 10^3/uL (0.0-0.6); ABSOLUTE LYMPHOCYTES (AUTO) 1.4 10^3/uL (0.5-4.7); ABSOLUTE MONOCYTES (AUTO) 0.5 10^3/uL (0.1-1.4); ABSOLUTE NEUT (AUTO) 5.7 10^3/uL (1.7-8.2); BASOPHILS % (AUTO) 0.4 % (0-2); EOSINOPHILS % (AUTO) 0.9 % (0-6); HEMATOCRIT 37.9 % (36.0-47.0); HEMOGLOBIN 12.7 g/dL (12.0-15.5); LYMPHOCYTES % (AUTO) 18.6 % (13-45); MEAN CORPUSCULAR HEMOGLOBIN 27.7 pg (27.0-33.4); MEAN CORPUSCULAR HGB CONC 33.5 g/dL (32.0-36.0); MEAN CORPUSCULAR VOLUME 83 fl (80-97); MONOCYTES % (AUTO) 6.7 % (3-13); PLATELET COUNT 226 10^3/uL (150-450); SEGMENTED NEUTROPHILS % (AUTO) 73.4 % (42-78); TOTAL CELLS COUNTED % (AUTO) 100 %; WHITE BLOOD COUNT 7.8 10^3/uL (4.0-10.5)
[2020-03-26 10:09] LABS: ANISOCYTOSIS 3+; PLATELET COMMENT ADEQUATE
[2020-03-26 10:10] LABS: OVALOCYTES SLIGHT; POLYCHROMASIA SLIGHT
[2020-03-26 10:35] LABS: URINE AMPHETAMINES SCREEN NEGATIVE; URINE BARBITURATES SCREEN NEGATIVE; URINE BENZODIAZEPINES SCREEN NEGATIVE; URINE COCAINE SCREEN NEGATIVE; URINE MARIJUANA (THC) SCREEN NEGATIVE; URINE METHADONE SCREEN NEGATIVE; URINE PHENCYCLIDINE SCREEN NEGATIVE
[2020-03-26 11:17] LABS: CHLAM PCR NOT DETECTED (NOT DETECT)
[2020-03-31] MEDS ORDERED: CEFAZOLIN SODIUM 2 GM in DEXTROSE 5%-WATER 100 ML IV SCH (05:00)
[2020-03-31] MEDS ORDERED: CEFAZOLIN 2 GM/D5W RTU 2 GM/50 ML RTUPB IV PRN (05:00)
[2020-03-31] MEDS ORDERED: LACTATED RINGERS 1000 ML IV PRN (07:43)
[2020-03-31] MEDS ORDERED: RINGERS SOLUTION,LACTATED 1,000 ML IV PRN ×2 (07:43→11:25)
[2020-03-31] MEDS ORDERED: EPHEDRINE SULFATE INJ 50 MG/1 ML AMPULE ONE (08:40)
[2020-03-31] MEDS ORDERED: MIDAZOLAM 2 MG/2 ML INJ ONE (08:40)
[2020-03-31] MEDS ORDERED: PHENYLEPHRINE HCL INJ/PF 10 MG/1 ML SDV ONE (08:40)
[2020-03-31] MEDS ORDERED: KETOROLAC TROMETHAMINE INJ/PF 30 MG/1 ML SDV ONE (08:40)
[2020-03-31] MEDS ORDERED: OXYTOCIN 10 UNIT/ML VIAL ONE (08:40)
[2020-03-31] MEDS ORDERED: FENTANYL CITRATE INJ/PF 100 MCG/2 ML AMPUL ONE (08:40)
[2020-03-31] MEDS ORDERED: ACETAMINOPHEN 1,000 MG/100 ML RTUPB IV ONE (08:41)
[2020-03-31] MEDS ORDERED: METHYLERGONOVINE MALEATE INJ/PF 0.2 MG/1 ML AMPULE ONE (08:41)
[2020-03-31] MEDS ORDERED: ONDANSETRON HCL INJ/PF 4 MG/2 ML SDV ONE (08:41)
[2020-03-31] MEDS ORDERED: FENTANYL CITRATE INJ/PF 100 MCG/2 ML AMPUL IV PRN ×3 (11:17)
[2020-03-31] MEDS ORDERED: DIPHENHYDRAMINE HCL 50 MG/ML VIAL IV PRN (11:17)
[2020-03-31] MEDS ORDERED: PROMETHAZINE HCL INJ 25 MG/1 ML VIAL IV PRN ×3 (11:17→11:25)
[2020-03-31] MEDS ORDERED: OXYCODONE-ACETAMINOPHEN 5-325 MG TABLET PO PRN ×2 (11:17)
[2020-03-31] MEDS ORDERED: ONDANSETRON HCL INJ/PF 4 MG/2 ML SDV IV PRN (11:17)
[2020-03-31] MEDS ORDERED: MEPERIDINE HCL/PF INJ 25 MG/1 ML DISP.SYRIN IV PRN (11:17)
--- NOTE | 2020-03-31 11:20 | PDOC DELIVERY SUMMARY ---
Delivery Summary - Maternal Hx : V Hx # Term Pregnancies: 3 Hx Total # of Abortions (Sponateous & Elective): 1 ЕКАТЕРИНА: 04/07/20 Gestational Age: 39 Risk Factors: Previous Ruptured Membranes: AROM Fluids: Clear - Delivery Labor: Not In Labor Uterine Contraction Monitoring: External Support Person Present: Yes Location: OR : Scheduled Placenta: Within Normal Limits Number of Vessels (Cord): 3 Nuchal Cord: Yes Estimated Blood Loss: 900 cc - Medications Type of Anesthesia:: Spinal
--- NOTE | 2020-03-31 11:24 | Operative Report ---
Operative Report DATE OF SURGERY: 03/31/20 PREOPERATIVE DIAGNOSIS: IUP term prior section POSTOPERATIVE DIAGNOSIS: Same OPERATION: Alen low transverse delivery of viable female SURGEON: TELLO ANTHONY ANESTHESIA: Spinal TISSUE REMOVED OR ALTERED: Placenta ESTIMATED BLOOD LOSS: 900 cc PROCEDURE: The patient was taken to the operating room where spinal anesthesia was obtained and found to be adequate. She was then prepped and draped in the normal sterile fashion and placed in the dorsal supine position with a leftward tilt. A Pfannenstiel skin incision was then made and carried through to the underlying layers of the fascia with the scalpel. The fascia was incised in the midline and the incision extended laterally with the Walker scissors. The superior aspect of the fascial incision was then grasped with Adry clamps elevated and the underlying rectus muscles dissected off bluntly. Attention was then turned to the inferior aspect of the fascial incision which in a similar fashion was grasped, tented up with Fly clamps, and the rectus muscles dissected off bluntly. The rectus muscles were then in the midline and the peritoneum at the amount identified and entered bluntly. The peritoneal incision was then extended superiorly and inferiorly with good visualization of the bladder. [The bladder blade was inserted and the vesicouterine peritoneum identified grasped with Gabonese pickups and entered sharply with the Metzenbaum scissors. His incision was then extended laterally with the Metzenbaum scissors and a bladder flap created digitally. The bladder blade was then reinserted and the lower uterine segment incised in a transverse fashion with the scalpel. The uterine incision was then extended bluntly. The bladder blade was removed and the 's head was delivered from cephalic presentation atraumatically. The nose and mouth were suctioned and the cord doubly clamped and cut. And the was handed off to waiting pediatricians. The placenta was then delivered manully and the uterus exteriorized and cleared of all clots and debris. The uterine incision was then repaired with 1-0 Vicryl in a running locked fashion. A second layer of the same suture was used to obtain hemostasis via imbrication of the initial layer. The uterus was returned to the patient's abdomen. The gutters were cleared of all clots and debris. All operative sites were noted to be hemostatic. The fascia was reapproximated with 0 Vicryl in a running fashion from each lateral edge to the midline. The patient tolerated the procedure well. Sponge lap needle and instrument counts are correct -2. 2 g of Ancef were given prior to skin incision. The patient was taken to the recovery area awake and in stable condition.
[2020-03-31] MEDS ORDERED: OXYTOCIN/0.9 % SODIUM CHLORIDE 30 UNIT/500 ML RTUINJ IV PRN (11:25)
[2020-03-31] MEDS ORDERED: DIPH/PERTUSS(ACELL)/TETANUS VAC/PF 0.5 ML SYR (>=10YO) IM PRN (11:25)
[2020-03-31] MEDS ORDERED: MEASLES,MUMPS&RUBELLA VACC/PF 0.5 ML VIAL SUBCUT PRN (11:25)
[2020-03-31] MEDS ORDERED: ACETAMINOPHEN 1,000 MG/100 ML RTUPB IV PRN (11:25)
[2020-03-31] MEDS ORDERED: MORPHINE SULFATE 10 MG/ML INJ IM PRN (11:25)
[2020-03-31] MEDS ORDERED: ACETAMINOPHEN 325 MG TABLET PO PRN (11:25)
[2020-03-31] MEDS ORDERED: OXYTOCIN/0.9 % SODIUM CHLORIDE 30 UNIT/500 ML RTUINJ ONE (12:12)
--- NOTE | 2020-03-31 12:28 | Birth Certificate Data ---
Cert Data Datetime Report Generated by CPN: 03/31/2020 12:27 CERTIFICATE DATA Delivery Provider: Dimitry Rosario, MD (03/31/2020 11:34:Betina Sales, RN) Mother's Height 50b. Height Inches: 64 (03/31/2020 08:37:QS system process) Mother's Weight 51b. Weight at Delivery (lbs): 220 (03/31/2020 08:37:QS system process) Onset of Labor 56a. PROM >12 Hrs: 0.02 (03/31/2020 11:37:QS system process) 57a. Induction of Labor: N/A (03/31/2020 11:37:Betina Ma RN) 57c. Non-Vertex Presentation A: Vertex (03/31/2020 11:37:Betina Ma RN) 57d. Steroids - Lung Mat: None (03/31/2020 11:37:Betina Ma RN) 57d. Steroids - Lung Mat: Not Applicable (03/31/2020 11:37:Betina Ma RN) 57e. Antibiotics During Labor: 03/31/2020 10:45 (03/31/2020 11:37:Betina Ma RN) 57f. Mat [place] or Temp >100.4: 97.8 (03/31/2020 11:37:Betina Ma RN) 57g. Moderate/Heavy Meconium: Clear (03/31/2020 11:37:Betina Ma RN) 57h. Intolerance of Labor: Repeat Elective (03/31/2020 11:37:Betina Ma RN) : N/A (03/31/2020 11:37:Betina Ma RN) 57i. Epidural/Spinal Anesthesia: None (03/31/2020 11:37:Betina Ma RN) Method of Delivery 58a. Forceps - Unsuccessful A: N/A (03/31/2020 11:37:Betina Ma RN) 58b. Vacuum - Unsuccessful A: N/A (03/31/2020 11:37:Betina Ma RN) 58c. Presentation at 58c. Presentation at - A : Vertex (03/31/2020 11:37:Betina Ma RN) 58c. Presentation at - A : N/A (03/31/2020 11:37:Betina Ma RN) 58c. Presentation at - A : Cephalic (03/31/2020 11:37:Betina Ma RN) Final Route and Method of Del 58d. Baby A Route/Delivery: (03/31/2020 11:37:Betina Ma RN) 58e. Trial of Labor Attempted: No (03/31/2020 11:37:Betina Ma RN) 58e. Trial of Labor Attempted A: N/A (03/31/2020 11:37:Betina Ma RN) 58e. Trial of Labor Attempted B: N/A (03/31/2020 11:37:Betina Ma RN) Maternal Morbidity 59b. 3rd or 4th Degree Lacs: None (03/31/2020 11:37:Betina Ma RN) Birthweight Baby A: 2830 (03/31/2020 11:37:Betina Sales, RN) 60a. Pounds : 6 (03/31/2020 11:37:QS system process) 60b. Ounces: 4 (03/31/2020 11:37:QS system process) 61. GA at Delivery Baby A: 39.0 (03/31/2020 11:37:Betina Sales, RN) : Full Term- 39- 40.6 Weeks (03/31/2020 11:37:QS system process) 62a. 5 Minute Baby A: 9 (03/31/2020 11:37:QS system process)
--- NOTE | 2020-03-31 12:28 | Delivery Summary ---
Del Sum A-C Datetime Report Generated by CPN: 03/31/2020 12:27 DELIVERY PERSONNEL DELIVERY PERSONNEL: [id number] Delivery Doctor:: Dimitry Rosario MD BOILERS INSPECTOR:: Cesia Gregg CRNA Manager Bench:: Betina Ma RN Neonatal Nurse Practitioner:: GÓMEZ Salgado Nursery Nurse:: Jojo Morris RN Data Solutions Architect/MANAGER HYDRAULIC: Chen Grover CST Data Solutions Architect/MANAGER HYDRAULIC: Ellie Torrez, SOLE LAYER HAND MATERNAL INFORMATION Delivery Anesthesia: Spinal Medications After Delivery: Pitocin 30 Units in 500ml NS/D5W; Pitocin Drip 20 Units/1000ml NSS Delivery QBL: 305 Maternal Complications: None LABOR SUMMARY EDC: 04/07/2020 00:00 Attempted: No Labor Anesthesia: None LABOR INFORMATION Reason for Induction: Not Applicable Oxytocin: N/A Group B Beta Strep: Negative Antibiotics # of Doses: 1 Antibiotics Time of Last Dose: 03/31/2020 10:45 Name of Antibiotic Given: Ancef 2g Steroids Given: None Reason Steroids Not Administered: Not Applicable MEMBRANES Membranes Rupture Method: Spontaneous Rupture of Membranes: 03/31/2020 11:01 Length of Rupture (hr): 0.02 Amniotic Fluid Color: Clear Amniotic Fluid Amount: Moderate Amniotic Fluid Odor: Normal STAGES OF LABOR Stage 3 hr: 0 Stage 3 min: 0 VAGINAL DELIVERY Episiotomy: None Laceration #1: None Laceration Extension #1: N/A Laceration Repair: Not Applicable Sponge Count Correct: N/A Sharps Count Correct: N/A CSECTION DELIVERY Primary Indication: Repeat Elective Secondary Indication: N/A CSection Urgency: Scheduled CSection Incidence: Repeat Labor: No Labor Elective: Elective CSection Incision: Lower Uterine Transverse BABY A INFORMATION Delivery Date/Time: 03/31/2020 11:02 Method of Delivery: Nurse Controlled Delivery: No Born in Route : No : N/A Forceps: N/A Vacuum Extraction: N/A Shoulder Dystocia : No PRESENTATION/POSITION BABY A Presentation: Cephalic Cephalic Presentation: Vertex Vertex Position: Left Occipital Anterior Breech Presentation: N/A PLACENTA INFORMATION BABY A Placenta Delivery Time : 03/31/2020 11:02 Placenta Method of Delivery: Manual Removal Placenta Status: Delivered SCORES BABY A Heart Rate 1 min: >100 bpm Resp Effort 1 min: Good Cry Reflex Irritability 1 min: Cough or Sneeze or Pulls Away Muscle Tone 1 min: Active Motion Color 1 min: Blue/Pale Resuscitation Effort 1 min: Tactile Stimulation SCORE 1 MIN: 8 Heart Rate 5 min: >100 bpm Resp Effort 5 min: Good Cry Reflex Irritability 5 min: Cough or Sneeze or Pulls Away Muscle Tone 5 min: Active Motion Color 5 min: Body [place], Extremities Blue Resuscitation Effort 5 min: N/A SCORE 5 MIN: 9 INFANT INFORMATION BABY A Gestational Age at Delivery: 39.0 Gestational Status: Full Term- 39- 40.6 Weeks Outcome : Liveborn Condition : Stable Sex: Female IDENTIFICATION BABY A Infant Verification Date/Time: 03/31/2020 11:08 ID Band Number: [id number] Mother's Name Verified: Yes RN Verifying Infant: Areli Ma, RN Additional Verifying Personnel: S. Arturo, RN WEIGHT/LENGTH BABY A Birthweight (gm): 2830 Infant Weight (lb): 6 Infant Weight (oz): 4 Length (in): 18.50 Length (cm): 46.99 CORD INFORMATION BABY A No. Cord Vessels: 3 Nuchal Cord : Around Neck x1, Loose Cord Blood Taken: Yes-For Storage (Mom's Blood type +) Infant Suction: Mouth; Nose ASSESSMENT BABY A Skin to Skin: Yes Skin to Skin Time (min): 60 BABY B INFORMATION : N/A
[2020-03-31] MEDS ORDERED: MORPHINE SULFATE 10 MG/ML INJ ONE (12:41)
[2020-03-31] MEDS: MORPHINE SULFATE 10 MG/ML INJ IV PRN ×2 (12:45→13:25)
[2020-03-31] MEDS: DOCUSATE SODIUM 100 MG CAPSULE PO SCH (17:17)
[2020-03-31] MEDS: OXYCODONE-ACETAMINOPHEN 5-325 MG TABLET PO PRN ×2 (17:18→21:27)
[2020-03-31] MEDS ORDERED: KETOROLAC TROMETHAMINE INJ/PF 30 MG/1 ML SDV IV SCH (18:00)
[2020-04-01] MEDS: SIMETHICONE 80 MG TAB.CHEW PO PRN ×2 (00:09→14:38)
[2020-04-01] MEDS: OXYCODONE-ACETAMINOPHEN 5-325 MG TABLET PO PRN ×5 (01:29→22:46)
[2020-04-01 07:05] LABS: HEMATOCRIT 37.4 % (36.0-47.0); HEMOGLOBIN 12.6 g/dL (12.0-15.5); MEAN CORPUSCULAR HEMOGLOBIN 28.1 pg (27.0-33.4); MEAN CORPUSCULAR HGB CONC 33.7 g/dL (32.0-36.0); MEAN CORPUSCULAR VOLUME 83 fl (80-97); PLATELET COUNT 208 10^3/uL (150-450); RED BLOOD COUNT 4.49 10^6/uL (3.72-5.28); RED CELL DISTRIBUTION WIDTH 20.8 % (11.5-14.0); WHITE BLOOD COUNT 8.8 10^3/uL (4.0-10.5)
[2020-04-01] MEDS ORDERED: INFLUENZA QUAD (6MOS+) 2020-21 VAC 0.5 ML SYR IM ONE (08:00)
[2020-04-01] MEDS: PRENATAL VITAMIN W DHA CAPSULE PO SCH (09:08)
[2020-04-01] MEDS: DOCUSATE SODIUM 100 MG CAPSULE PO SCH ×2 (09:08→17:34)
--- NOTE | 2020-04-01 12:36 | PDOC PROGRESS REPORT ---
Subjective-OB Progress Note for:: 04/01/20 Subjective: Pt doing well, no concerns. She reports light bleeding, reg diet and voiding w/o difficulty. Physical Exam (OB) Vital Signs: Temp Pulse Resp BP Pulse Ox 97.7 F 60 16 135/78 H 100 04/01/20 11:44 04/01/20 11:44 04/01/20 11:44 04/01/20 11:44 04/01/20 11:44 Intake & Output 03/31/20 04/01/20 04/02/20 06:59 06:59 06:59 Intake Total 300 300 Output Total 850 Balance -550 300 Weight 99.79 kg - Dressing Removed: No Closure Type: pressuredx - Maternal Morbidity 59. Maternal Morbidity (serious complications experinced by the mother associated with labor and delivery: None of the above - Lochia Lochia Amount: Small 10-25 ml Lochia Color: Rubra/Red - Abdomen Description: Tender, Soft, Round Hernia Present: No Fundal Description: Firm, Midline Fundal Height: u/u - u/2 Objective-Diagnostic Laboratory: 04/01/20 06:14 04/01/20 06:14 WBC 8.8 RBC 4.49 Hgb 12.6 Hct 37.4 MCV 83 MCH 28.1 MCHC 33.7 RDW 20.8 H Plt Count 208 Assessment and Plan(PN) - Assessment and Plan (1) S/P repeat low transverse Is this a current diagnosis for this admission?: Yes - Time Spent with Patient Time with patient: Less than 15 minutes Medications reviewed and adjusted accordingly: Yes - Disposition Anticipated Discharge Disposition: Home, Self Care Anticipated Discharge Timeframe: within 24 hours
[2020-04-02] MEDS: OXYCODONE-ACETAMINOPHEN 5-325 MG TABLET PO PRN ×2 (03:31→09:21)
[2020-04-02] MEDS: DOCUSATE SODIUM 100 MG CAPSULE PO SCH (09:21)
[2020-04-02] MEDS: PRENATAL VITAMIN W DHA CAPSULE PO SCH (09:21)
[2020-04-02 09:30] VITALS: BP 114/68
--- NOTE | 2020-04-02 10:44 | PDOC DISCHARGE SUMMARY ---
Impression - Admit/DC Date/PCP Admission Date/Primary Care Provider: 03/31/20 07:08 TELLO ANTHONY MD Discharge Date: 04/02/20 - Discharge Diagnosis (1) S/P repeat low transverse Is this a current diagnosis for this admission?: Yes - Additional Information Resuscitation Status: Full Code Discharge Diet: Regular Discharge Activity: Balance Activity w/Rest, No Lifting Over 10 Pounds, No Lifting/Push/Pulling, No tub bath Referrals: TELLO ANTHONY MD [Primary Care Provider] - Home Medications: Cyanocobalamin (Vitamin B-12) [B-12] 1 tab PO DAILY 08/04/18 Hydrochlorothiazide [Hydrodiuril 25 mg Tablet] 25 mg PO DAILY #10 08/04/18 Multivitamin with Iron [Multivitamins with Iron] 1 tab PO DAILY 08/04/18 Cephalexin Monohydrate [Keflex 500 mg Capsule] 500 mg PO Q6H 5 Days capsule 02/02/19 Doxycycline Hyclate 100 mg PO BID #14 capsule 03/15/19 Ibuprofen [Ibu] 800 mg PO Q8 #60 tablet 03/15/19 Methylergonovine Maleate [Methergine 0.2 Mg Tablet] 0.2 mg PO Q6 #7 tablet 03/15/19 Oxycodone HCl/Acetaminophen [Percocet 5-325 mg Tablet] 1 tab PO Q4HP PRN #20 tablet 03/15/19 HPI Gestational Age: 39.0 Reason(s) for Admission: Ceasarean Section-Repeat Procedures: None Intrapartum Procedure(s): : Low Cervical, Transverse Hospital Course 59. Maternal Morbidity (serious complications experinced by the mother associated with labor and delivery: None of the above Results Laboratory Results: WBC 8.8 10^3/uL (4.0-10.5) 04/01/20 06:14 RBC 4.49 10^6/uL (3.72-5.28) 04/01/20 06:14 Hgb 12.6 g/dL (12.0-15.5) 04/01/20 06:14 Hct 37.4 % (36.0-47.0) 04/01/20 06:14 MCV 83 fl (80-97) 04/01/20 06:14 MCH 28.1 pg (27.0-33.4) 04/01/20 06:14 MCHC 33.7 g/dL (32.0-36.0) 04/01/20 06:14 RDW 20.8 % (11.5-14.0) H 04/01/20 06:14 Plt Count 208 10^3/uL (150-450) 04/01/20 06:14 Lymph % (Auto) 18.6 % (13-45) 03/26/20 08:39 Nuckolls % (Auto) 6.7 % (3-13) 03/26/20 08:39 Eos % (Auto) 0.9 % (0-6) 03/26/20 08:39 Baso % (Auto) 0.4 % (0-2) 03/26/20 08:39 Absolute Neuts (auto) 5.7 10^3/uL (1.7-8.2) 03/26/20 08:39 Absolute Lymphs (auto) 1.4 10^3/uL (0.5-4.7) 03/26/20 08:39 Absolute Monos (auto) 0.5 10^3/uL (0.1-1.4) 03/26/20 08:39 Absolute Eos (auto) 0.1 10^3/uL (0.0-0.6) 03/26/20 08:39 Absolute Basos (auto) 0.0 10^3/uL (0.0-0.2) 03/26/20 08:39 Seg Neutrophils % 73.4 % (42-78) 03/26/20 08:39 Platelet Comment ADEQUATE 03/26/20 08:39 Polychromasia SLIGHT 03/26/20 08:39 Anisocytosis 3+ 03/26/20 08:39 Ovalocytes SLIGHT 03/26/20 08:39 Urine Color YELLOW 03/26/20 08:50 Urine Appearance CLEAR 03/26/20 08:50 Urine pH 8.0 (5.0-9.0) 03/26/20 08:50 Ur Specific [place] 1.006 03/26/20 08:50 Urine Protein NEGATIVE mg/dL (NEGATIVE) 03/26/20 08:50 Urine Glucose (UA) NEGATIVE mg/dL (NEGATIVE) 03/26/20 08:50 Urine Ketones NEGATIVE mg/dL (NEGATIVE) 03/26/20 08:50 Urine Blood NEGATIVE (NEGATIVE) 03/26/20 08:50 Urine Nitrite NEGATIVE (NEGATIVE) 03/26/20 08:50 Urine Bilirubin NEGATIVE (NEGATIVE) 03/26/20 08:50 Urine Urobilinogen NEGATIVE mg/dL (<2.0) 03/26/20 08:50 Ur Leukocyte Esterase NEGATIVE (NEGATIVE) 03/26/20 08:50 Urine WBC (Auto) 0 /HPF 03/26/20 08:50 Squamous Epi Cells Auto <1 /HPF 03/26/20 08:50 Urine Mucus (Auto) RARE /LPF 03/26/20 08:50 Urine Ascorbic Acid NEGATIVE (NEGATIVE) 03/26/20 08:50 Urine Opiates Screen NEGATIVE 03/26/20 08:50 Urine Methadone Screen NEGATIVE 03/26/20 08:50 Ur Barbiturates Screen NEGATIVE 03/26/20 08:50 Ur Phencyclidine Scrn NEGATIVE 03/26/20 08:50 Ur Amphetamines Screen NEGATIVE 03/26/20 08:50 U Benzodiazepines Scrn NEGATIVE 03/26/20 08:50 Urine Cocaine Screen NEGATIVE 03/26/20 08:50 U Marijuana (THC) Screen NEGATIVE 03/26/20 08:50 Chlamydia DNA (PCR) NOT DETECTED (NOT DETECT) 03/26/20 08:50 COVID-19 Source See comment 03/26/20 08:52 COVID-19 (ESDRAS) Not Detected (Not Detect) 03/26/20 08:52 N.gonorrhoeae DNA (PCR) NOT DETECTED (NOT DETECT) 03/26/20 08:50 Blood Type B POSITIVE 03/29/20 11:05 Antibody Screen NEGATIVE 03/29/20 11:05 Plan Plan of Treatment: f/u at [facility] next week for incision check Time Spent: Less than 30 Minutes
[2020-04-05] MEDS ORDERED: IBUPROFEN 800 MG TABLET PO SCH (18:00)
== END 2020-04-02 12:15 | disposition home or self-care (01) | DRG 788 ==
LOC: 2S 03-31 07:08
PROVIDERS: ADMIT Obstetrics & Gynecology Gynecology; ATTEND Obstetrics & Gynecology Gynecology
PROC: 10D00Z1 Extraction of Products of Conception, Low, Open Approach (ICD-10-PCS; principal; 2020-03-31)
PROC: 3E0234Z Introduction of Serum, Toxoid and Vaccine into Muscle, Percutaneous Approach (ICD-10-PCS; 2020-04-02)
DX: O34.211 Maternal care for low transverse scar from previous cesarean delivery (principal); Z20.828 Contact with and (suspected) exposure to other viral communicable diseases; O69.81X0 Labor and delivery complicated by cord around neck, without compression, not applicable or unspecified; Z23 Encounter for immunization; Z91.040 Latex allergy status; Z3A.39 39 weeks gestation of pregnancy; Z37.0 Single live birth
CPT/HCPCS: 1961; 36415; 59025; 80307; 81001; 85025; 85027; 86850; 86900; 86901; 87491; 87591; 87635; 90471; 90686; 94760; 94799; C9803; G0008; J0131; J1885; J2210; J2250; J2270; J2370; J2405; J2590; J3010; J3490; J7120